=== PATIENT | male | born 1990 | race African-American/Black ===

== ENCOUNTER 2021-10-25 02:22 | Emergency (ER) | payer MEDICAID ==
[~2021-10-25] VITALS: Ht 182.9 cm; Wt 153.8 kg
[2021-10-25 06:09] LABS: CLARITY URINE CLEAR (CLEAR); COLOR URINE YELLOW (YELLOW); KETONES URINE NEGATIVE (NEGATIVE); LEUKOCYTE ESTERASE URINE NEGATIVE (NEGATIVE); NITRITE URINE NEGATIVE (NEGATIVE); OCCULT BLOOD URINE 1+ (NEGATIVE); PROTEIN URINE NEGATIVE (NEGATIVE); SPECIFIC GRAVITY URINE 1.027 (1.005-1.030); UROBILINOGEN URINE 0.2 E.U./dL (0.2-1.0)
[2021-10-25] MEDS ORDERED: SODIUM CHLORIDE 0.9% 1,000 ML IV ONE ×2 (06:15→08:30)
[2021-10-25 06:40] LABS: BASOPHILS % 0.6 % (0.0-2.0); EOSINOPHILS % 1.5 % (0.0-5.0); HEMOGLOBIN. 14.4 g/dL (14.0-18.0); LYMPHOCYTES % 30.7 % (20.0-50.0); MEAN CORPUSCULAR HEMOGLOBIN 27.7 pg (28.0-32.0); MEAN CORPUSCULAR VOLUME 80.7 fL (80.0-94.0); MEAN PLATELET VOLUME 7.1 fl (7.4-10.4); MONOCYTES % 10.8 % (2.0-8.0); NEUTROPHILS % 56.4 % (40.0-76.0); PLATELET 263 x1000/uL (130-400); RED CELL DISTRIBUTION WIDTH 13.7 % (11.6-14.6)
[2021-10-25 06:46] LABS: CHLORIDE 101 mEq/L (98-107)
[2021-10-25 06:54] LABS: BETA HYDROXYBUTYRATE 0.2 mMol/L (0.0-0.3)
[2021-10-25] MEDS ORDERED: INSULIN REGULAR (HUMULIN R) 300UNITS/3ML VIAL SUBCUT SCH (08:00)
[2021-10-25] MEDS ORDERED: INSULIN REGULAR (HUMULIN R) UD 100 UNITS/ML SYR SUBCUT ONE (08:00)
[2021-10-25] MEDS ORDERED: METF-414 MT (09:43)
[2021-10-25] MEDS ORDERED: TCNYC15 TP (09:43)
[2021-10-25 10:13] VITALS: BP 127/82
== END 2021-10-25 10:16 | disposition home or self-care (01) ==
LOC: ER 02:22
DX: E11.9 Type 2 diabetes mellitus without complications (principal); F17.290 Nicotine dependence, other tobacco product, uncomplicated; N48.1 Balanitis
CPT/HCPCS: 36415; 80053; 81003; 82010; 82962; 85025; 96360; 96372; 99285; J1815; J7030